=== PATIENT | male | born 1995 | race Two or more races ===

== ENCOUNTER 2018-08-08 08:20 | Emergency (ER) | payer BC ==
[2018-08-08 09:50] LABS: #Eosinphils 0.1 thou/uL (0.0-0.7); #Lymphocytes 1.4 thou/uL (1.20-3.40); #Monocytes 0.4 thou/uL (0.11-0.59); #Neutrophils 4.4 thou/uL (1.40-6.50); %Basophils 0.3 % (0.0-1.0); %Eosinophils 1.1 % (0.0-10.0); %Lymphocytes 22.1 % (28.0-48.0); %Monocytes 6.4 % (0.0-4.0); %Neutrophils 70.1 % (31.0-61.0); Hemoglobin 17.2 g/dL (14.0-18.0); Mean Corpuscular Hemoglobin 33.4 pg (25.0-35.0); Mean Corpuscular Volume 92.7 fL (78.0-98.0); Mean Platelet Volume 6.7 fL (7.4-10.4); Platelet Count 254 thou/uL (130-400); RBC Distribution Width 11.2 % (11.5-14.5); Red Blood Cell (RBC) Count 5.13 mill/uL (4.00-5.20); White Blood Cell (WBC) Count 6.3 thou/uL (4.8-10.8)
[2018-08-08 10:37] LABS: Anion Gap 16 mmol/L (10-20); BUN (Urea Nitrogen) 16 mg/dL (8.9-20.6); Calc. Creatinine Clearance 0 mL/min (70-130); Calcium 10.2 mg/dL (7.8-10.44); Carbon Dioxide 22 mmol/L (22-29); Chloride 102 mmol/L (98-107); Estimated GFR-MDRD Greater than 90; Glucose 92 mg/dL (70-105); Potassium 4.3 mmol/L (3.5-5.1); Sodium 136 mmol/L (136-145)
== END 2018-08-08 10:59 | disposition home or self-care (01) ==
LOC: EEVIPCON 08:20 → ERS 08:20
DX: R53.83 Other fatigue (principal)
CPT/HCPCS: 36415; 80048; 84443; 85025; 99283

== ENCOUNTER 2018-08-29 06:03 | Emergency (ER) | payer BC | END 2018-08-29 06:20 | disposition home or self-care (01) | LOC: ERS 06:03 | DX: F52.32 Male orgasmic disorder (principal) | CPT/HCPCS: 99283 ==

== ENCOUNTER 2018-09-08 12:07 | Emergency (ER) | payer BC ==
--- NOTE | 2018-09-08 14:19 | RAD ---
PORTABLE AP CHEST: Date: 09/08/18 HISTORY: Chest pain that started 1 day ago. FINDINGS: Cardiac silhouette and pulmonary vasculature are within normal limits. Lungs are clear. Osseous struc tures are intact. IMPRESSION: No acute cardiopulmonary process. POS: [facility]
== END 2018-09-08 13:00 | disposition home or self-care (01) ==
LOC: ERS 12:07
DX: R07.9 Chest pain, unspecified (principal)
CPT/HCPCS: 71045; 93005

== ENCOUNTER 2018-09-10 05:11 | Emergency (ER) | payer BC | END 2018-09-10 06:21 | disposition home or self-care (01) | LOC: ERS 05:11 | DX: N48.89 Other specified disorders of penis (principal) | CPT/HCPCS: 99282 ==

== ENCOUNTER 2020-11-15 22:43 | Emergency (ER) | payer BC | END 2020-11-15 23:51 | disposition home or self-care (01) | LOC: ERS 22:43 | DX: R53.83 Other fatigue (principal); M25.551 Pain in right hip; F17.210 Nicotine dependence, cigarettes, uncomplicated | CPT/HCPCS: 99283 ==

== ENCOUNTER 2020-11-19 16:16 | Emergency (ER) | payer BC | END 2020-11-19 16:55 | disposition home or self-care (01) | LOC: ERS 16:16 | DX: K92.1 Melena (principal); F17.210 Nicotine dependence, cigarettes, uncomplicated | CPT/HCPCS: 99283 ==